=== PATIENT | female | born 1965 | race Native Hawaiian/Other Pacific Islander ===

== ENCOUNTER 2017-01-27 21:00 | Observation (INO) | payer OTHER ==
[~2017-01-27] VITALS: Ht 149.9 cm; Wt 80.3 kg
[2017-01-27 21:07] VITALS: BP 162/78; TEMP 97.8
[2017-01-27 21:57] LABS: PLATELET COUNT 299 K/uL (152-353)
[2017-01-27 22:00] LABS: POTASSIUM 4.1 mmol/L (3.6-5.2); SODIUM 137 mmol/L (136-145)
[2017-01-27 22:08] LABS: PARTIAL THROMBOPLASTIN TIME 22.3 SECONDS (24.5-33.6)
[2017-01-27 22:19] VITALS: BP 134/70
[2017-01-28 01:26] VITALS: BP 144/77; TEMP 97.8; Ht 149.9 cm; Wt 80.3 kg
[2017-01-28 04:00] VITALS: BP 111/79; TEMP 97.5
[2017-01-28 08:00] VITALS: BP 108/62; TEMP 97.6
[2017-01-28 08:18] LABS: PLATELET COUNT 280 K/uL (152-353)
[2017-01-28 08:43] LABS: POTASSIUM 4.2 mmol/L (3.6-5.2); SODIUM 137 mmol/L (136-145)
[2017-01-28 12:00] VITALS: BP 119/68; TEMP 97.6
[2017-01-28 16:00] VITALS: BP 142/74; TEMP 98.4
== END 2017-01-28 15:55 | disposition home or self-care (01) ==
LOC: ED 21:00 → MED/SURG 22:56
PROVIDERS: Internal Medicine; ADMIT Specialist
DX: R07.89 Other chest pain (principal); F17.210 Nicotine dependence, cigarettes, uncomplicated
CPT/HCPCS: 36415; 80053; 82550; 84484; 85027; 85610; 85730; 93005; 96372; 99220; 99284; G0378; J1650

== ENCOUNTER 2017-06-24 14:48 | Outpatient (CLI) | payer OTHER | END 2017-06-24 19:08 | disposition home or self-care (01) | LOC: RAD 14:48 | DX: Z12.31 Encounter for screening mammogram for malignant neoplasm of breast (principal) | CPT/HCPCS: G0202-TC ==

== ENCOUNTER 2017-10-09 18:36 | Emergency (ER) | payer OTHER ==
[~2017-10-09] VITALS: Ht 149.9 cm; Wt 83.9 kg
[2017-10-09 18:41] VITALS: BP 165/88; TEMP 98.2
== END 2017-10-09 20:03 | disposition home or self-care (01) ==
LOC: ED 18:36
DX: M25.562 Pain in left knee (principal)
CPT/HCPCS: 99281

== ENCOUNTER 2022-03-01 14:35 | Outpatient (CLI) | payer OTHER | END 2022-03-01 19:03 | disposition home or self-care (01) | LOC: MAMMO 14:35 | PROVIDERS: ATTEND Family Medicine | DX: Z12.31 Encounter for screening mammogram for malignant neoplasm of breast (principal) ==